=== PATIENT | female | born 1950 | race Caucasian/White ===

== ENCOUNTER 2016-11-15 08:30 | Emergency (ER) | payer BC ==
--- NOTE | 2016-11-15 08:52 | UCPHY ---
H & P Patient Type: New Time Seen by Provider: 11/15/16 08:41 HPI/ROS: CHIEF COMPLAINT: Low back pain HISTORY OF PRESENT ILLNESS: The patient is a 66-year-old female who comes to the Urgent Care complaining of low back/gluteal pain. She points to her left SI joint as the source of pain. It does not radiate beyond her gluteus. She states that it does not feel like sciatica which she has had before. She does have a history of spinal stenosis and had her cervical spine fused after a fall 1 year ago. She has been receiving physical therapy for her upper extremity since that fall. She states that while she was vacuuming 1 month ago she had a sudden pain in her left gluteus/posterior hip. It resolved with rest however it exacerbated again when she went on a trip and set on a plane last week and returned yesterday. She has not had any leg pain or swelling. No chest pain or shortness of breath. No fever. No significant trauma. No bowel or bladder abnormalities, no paresthesias or weakness. She can ambulate without difficulty. She has been trying to take Flexeril and Tylenol at home without significant relief. Daughter gave her Percocet which did help this morning. She has an appointment with physical therapy on Friday. She is here requesting pain medication to get her through the weekend. REVIEW OF SYSTEMS: Constitutional: denies: chills, fever, recent illness, recent injury EENTM: denies: blurred vision, double vision, nose congestion Respiratory: denies: cough, shortness of breath Cardiac: denies: chest pain, irregular heart rate, lightheadedness, palpitations Gastrointestinal/Abdominal: denies: abdominal pain, diarrhea, nausea, vomiting, blood streaked stools Genitourinary: denies: dysuria, frequency, hematuria, pain Musculoskeletal: See HPI Skin: denies: lesions, rash, jaundice, bruising Neurological: denies: headache, numbness, paresthesia, tingling, dizziness, weakness Hematologic/Lymphatic: denies: blood clots, easy bleeding, easy bruising Immunologic/allergic: denies: HIV/AIDS, transplant EXAM: GENERAL: Well-appearing, well-nourished and in no acute distress. HEAD: Atraumatic, normocephalic. EYES: Pupils equal round and reactive to light, extraocular movements intact, sclera anicteric, conjunctiva are normal. ENT: TMs normal, nares patent, oropharynx clear without exudates. Moist mucous membranes. NECK: Normal range of motion, supple without lymphadenopathy or JVD. LUNGS: Breath sounds clear to auscultation bilaterally and equal. No wheezes rales or rhonchi. HEART: Regular rate and rhythm without murmurs, rubs or gallops. ABDOMEN: Soft, nontender, normoactive bowel sounds. No guarding, no rebound. No masses appreciated. BACK: No CVA tenderness, no spinal tenderness, step-offs or deformities EXTREMITIES: Left gluteal/sacroiliac area pain. No radiation. No low back tenderness. Normal strength. Normal range of motion, no pitting or edema. No clubbing or cyanosis. NEUROLOGICAL: Cranial nerves II through XII grossly intact. Normal speech, normal gait. 5/5 strength, normal movement in all extremities, normal sensation , normal reflexes, PSYCH: Normal mood, normal affect. SKIN: Warm, dry, normal turgor, no visible rashes or lesions. Source: Patient Exam Limitations: No limitations - Medical/Surgical History Hx Asthma: No Hx Chronic Respiratory Disease: No Hx Diabetes: No Hx Cardiac Disease: No Hx Renal Disease: No Hx Cirrhosis: No Hx Alcoholism: No Hx HIV/AIDS: No Hx Splenectomy or Spleen Trauma: No Other PMH: JARROD,ORTHO-BOTH KNEES,RT. SHOULDER,GB - Family History Significant Family History: Hypertension - Social History Smoking Status: Former smoker Alcohol Use: Sober Drug Use: None Allergies/Adverse Reactions: No Known Allergies Allergy (Verified 11/30/15 09:45) Home Medications: Medication Instructions Recorded Levothyroxine 07/19/09 Cyclobenzaprine [Flexeril] 5 - 10 mg PO TID PRN #15 tab 11/30/15 Hydrocodone/APAP 5/325 [[place] 1 tab PO Q6H PRN #20 tab 11/30/15 5/325 (*)] Ondansetron Odt [Zofran Odt] 4 mg PO Q4-6PRN PRN #15 tab 11/30/15 oxyCODONE/APAP 5/325 [Percocet 1 - 2 tab PO Q4-6PRN PRN #14 tab 11/15/16 5/325 (RX)] Medical Decision Making - Diagnostics Imaging: X-ray: Lumbar spine and sacrum x-ray was obtained. I viewed the images myself on the PACS system. My interpretation of the images is: Negative. The radiologist interpretation is pending. ED Course/Re-evaluation: We discussed the patient's x-ray results. She is reassured. I suspect she has sacroiliitis. Will treat her with pain medication and she will continue physical therapy. We also discussed rheumatology referral if her symptoms continue. She is grateful and happy with this plan and declines further workup or testing at this time. Differential Diagnosis: Partial list of the Differential diagnosis considered include but were not limited to; sacroiliitis, degenerative disc disease, radiculopathy and although unlikely based on the history and physical exam, I also considered ovarian cyst, kidney stone, urinary tract infection, diverticulitis, DVT, abscess. I discussed these differential diagnoses and the plan with the patient as well as the usual and expected course. The patient understands that the diagnosis is provisional and that in medicine we are not always correct and that further workup is often warranted. Usual and customary warnings were given. All of the patient's questions were answered. The patient was instructed to return to the emergency department should the symptoms at all worsen or return, otherwise to followup with the physician as we discussed. Departure - Departure Disposition: Home, Routine, Self-Care Clinical Impression: Sacroiliitis Condition: Fair Instructions: Sacroiliitis (ED) Referrals: Anders Bahena MD [Medical Doctor] - As per Instructions Prescriptions: oxyCODONE/APAP 5/325 [Percocet 5/325 (RX)] 1 - 2 tab PO Q4-6PRN PRN #14 tab PRN Reason: Pain - PQRS PQRS Measurement: 134: Depression screening and followup, PRIME MD-PHQ2 (12 years and older) Over the last 2 weeks, how often have you been bothered by any of the following problems? 1. Feeling down, depressed, or hopeless? 2. Little interest or pleasure in doing things? Patient answered no to both 1 and 2 130: Documentation of medications. Reviewed all patient medications, doses, route and frequency. 226: Do you smoke? No. 47: 65 and older: Advanced care planning. Patient designates surrogate decision maker as spouse . Patient has advanced directive. 51: 18 years old and older with diagnosis of COPD, spirometry performance. Spirometry not performed; equipment not available. 52: 18 years old and older with COPD and symptoms of COPD or FEV1<60% predicted prescribed a B Agonist. Not applicable
== END 2016-11-15 09:36 | disposition home or self-care (01) ==
LOC: CED 08:30
DX: M46.1 Sacroiliitis, not elsewhere classified (principal)
CPT/HCPCS: 72100-PO; 72220-PO; 99204-PO; G0463-PO

== ENCOUNTER → 2017-02-05 | Outpatient (CLI) | payer BC | LOC: CLAB 13:21 | PROVIDERS: ATTEND Neurological Surgery | DX: Z09 Encounter for follow-up examination after completed treatment for conditions other than malignant neoplasm (principal); Z98.1 Arthrodesis status | CPT/HCPCS: 72040-PO ==

== ENCOUNTER → 2017-12-02 | Outpatient (CLI) | payer BC | LOC: CIMAGING 15:02 | PROVIDERS: ATTEND Family Medicine | DX: E04.2 Nontoxic multinodular goiter (principal) | CPT/HCPCS: 76536-PO ==

== ENCOUNTER → 2018-12-29 | Outpatient (CLI) | payer OTHER | LOC: CIMAGING 10:11 | PROVIDERS: ATTEND Family Medicine | DX: E04.1 Nontoxic single thyroid nodule (principal) | CPT/HCPCS: 76536-PO ==